=== PATIENT | male | born 1960 | race Caucasian/White ===

== ENCOUNTER 2019-09-17 08:55 | Inpatient (IN) ==
[2019-09-17] MEDS ORDERED: CeFAZolin Syr 2,000MG/20 ML 2,000 MG/20 ML SYRINGE IVPB ONE (09:08)
[2019-09-17] MEDS ORDERED: Ringers Solution, Lactated 1,000 ML IVC SCH ×2 (09:15→13:09)
[2019-09-17] MEDS ORDERED: Acetaminophen IV 1,000 MG/100 ML INFUS..BTL IVPB ONE (09:50)
[2019-09-17] MEDS ORDERED: Scopolamine Patch 1.5 MG PATCH.TD72 TD ONE (09:50)
[2019-09-17] MEDS ORDERED: Ondansetron 4 MG/2 ML VIAL IVP ONE (09:52)
[2019-09-17] MEDS ORDERED: *HR* Promethazine 25 MG/ML VIAL IVP PRN (09:52)
[2019-09-17] MEDS ORDERED: *HR* OxyCODONE Immed Rel 5 MG TABLET PO PRN ×2 (09:52→13:09)
[2019-09-17] MEDS ORDERED: *HR* Meperidine 25 MG/ML SYRINGE IVP PRN (09:52)
[2019-09-17] MEDS ORDERED: Dexamethasone 4 MG/ML VIAL ONE ×2 (10:33→11:59)
[2019-09-17] MEDS ORDERED: *HR* FentaNYL (PF) 100 MCG/2 ML VIAL ONE ×2 (10:33→11:31)
[2019-09-17] MEDS ORDERED: *HR* Succinylcholine 200 MG/10 ML VIAL IVP ONE (10:33)
[2019-09-17] MEDS ORDERED: Ondansetron 4 MG/2 ML VIAL ONE ×2 (10:33→11:59)
[2019-09-17] MEDS ORDERED: Lidocaine -MPF 2% 2 ML VIAL ONE (10:33)
[2019-09-17] MEDS ORDERED: *HR* Propofol 200 MG/20 ML VIAL IVP ONE (10:33)
[2019-09-17] MEDS ORDERED: Lidocaine HCL 4 ML Topical Solution (Laryng-O-Jet Kit Sterile Pak) TP ONE (10:34)
[2019-09-17] MEDS ORDERED: *HR* Midazolam HCl 2 MG/2 ML VIAL ONE (10:37)
[2019-09-17] MEDS ORDERED: Ethanol\\Acetic Acid\\Na Ace\\Ben 1,000 ML IRRIG.SOLN IR ONE (10:46)
[2019-09-17] MEDS ORDERED: Ropivacaine/PF 0.5% 30 ML VIAL ONE (10:48)
[2019-09-17] MEDS ORDERED: ROPIVACAINE/PF/NS 0.25% 1 EACH SYRINGE INTRAART ONE (10:48)
[2019-09-17] MEDS: *HR* HYDROmorphone (PF) 1 MG/ML SYRINGE IVP PRN ×2 (12:33→12:43)
[2019-09-17 12:46] LABS: Hematocrit 43.3 % (37.5-50.1); Hemoglobin 15.1 g/dL (12.9-16.9)
[2019-09-17] MEDS ORDERED: Sennosides 8.6 MG TABLET PO PRN (13:09)
[2019-09-17] MEDS ORDERED: Naloxone 0.4 MG/ML INJ IVP PRN (13:09)
[2019-09-17] MEDS ORDERED: MOM Conc 10 ML UD.LIQ PO PRN (13:09)
[2019-09-17] MEDS ORDERED: Ondansetron 4 MG/2 ML VIAL IVP PRN (13:09)
[2019-09-17] MEDS ORDERED: Temazepam 15 MG CAPSULE PO PRN (13:09)
[2019-09-17] MEDS ORDERED: *HR* OxyCODONE/APAP 5/325 TABLET PO PRN (13:09)
[2019-09-17 14:22] VITALS: BP 115/75
[2019-09-17] MEDS ORDERED: *HR* Enoxaparin 30 MG/0.3 ML SYRINGE SQ ONE (15:30)
[2019-09-17] MEDS ORDERED: *HR* Enoxaparin 30 MG/0.3 ML SYRINGE SQ SCH ×2 (18:00)
[2019-09-18] MEDS ORDERED: Loratadine 10 MG TABLET PO SCH (09:00)
== END 2019-09-17 17:32 | disposition home or self-care (01) | DRG 483 ==
LOC: SAMDAY 08:55 → 3NENU 13:11
PROVIDERS: ADMIT Orthopaedic Surgery; ATTEND Orthopaedic Surgery